=== PATIENT | male | born 1990 | race Two or more races ===

== ENCOUNTER 2022-07-12 12:22 | Emergency (ER) | payer SELFPAY ==
[~2022-07-12] VITALS: Ht 182.9 cm; Wt 95.5 kg
[2022-07-12] MEDS ORDERED: TETRACAINE HCL 0.5% OPTH(EYE) SOLN 4ML LEFTEYE ONE (17:00)
[2022-07-12] MEDS: IBUPROFEN 600 MG TAB PO ONE ×2 (17:00→17:24)
[2022-07-12] MEDS ORDERED: FLUORESCEIN SOD OPTH TEST STRIP LEFTEYE ONE (17:00)
[2022-07-12] MEDS ORDERED: CYCL-839 PO (17:36)
[2022-07-12] MEDS ORDERED: IBUP600T28 PO (17:36)
[2022-07-12] MEDS ORDERED: IBUPROFEN 600 MG TAB PO ONE (18:00)
[2022-07-12 19:50] VITALS: BP 116/89
== END 2022-07-12 18:22 | disposition home or self-care (01) ==
LOC: ER 12:22
DX: S16.1XXA Strain of muscle, fascia and tendon at neck level, initial encounter (principal); S39.012A Strain of muscle, fascia and tendon of lower back, initial encounter; V89.2XXA Person injured in unspecified motor-vehicle accident, traffic, initial encounter; Y93.89 Activity, other specified; Y92.488 Other paved roadways as the place of occurrence of the external cause; Y99.8 Other external cause status
CPT/HCPCS: 72040; 72100